=== PATIENT | male | born 1980 | race Caucasian/White ===

== ENCOUNTER 2017-07-16 13:29 | Emergency (ER) | payer OTHER ==
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
[~2017-07-16 13:29] MED LIST: BENZONATATE PO; LORATADINE PO; NAPROSYN500 MG PO; NO MEDICATIONS; ROBAXIN500 MG PO; ROBITUSSIN A-C-S1 ML PO; VICODIN 5/500 T1 TAB PO
[2017-07-16] MEDS ORDERED: VIIBRYD PO (13:44)
== END 2017-07-16 16:10 | disposition home or self-care (01) ==
LOC: SED 13:29
DX: S00.03XA Contusion of scalp, initial encounter (principal); S80.02XA Contusion of left knee, initial encounter; S40.012A Contusion of left shoulder, initial encounter; Z23 Encounter for immunization; F17.210 Nicotine dependence, cigarettes, uncomplicated; Z88.0 Allergy status to penicillin; Y08.89XA Assault by other specified means, initial encounter; Y92.524 Gas station as the place of occurrence of the external cause
CPT/HCPCS: 73562; 90471; 90715; 99283